=== PATIENT | male | born 1960 | race Caucasian/White ===

== ENCOUNTER 2021-01-12 15:53 | Emergency (ER) | payer SELFPAY ==
[2021-01-12 17:05] LABS: BASOPHIL 0.4 % (0-2); EOSINOPHIL 0.3 % (0-5); HCT 48.3 % (42.0-52.0); HGB 16.7 g/dl (13.2-18.0); MCH 34.4 pg (25.0-31.0); MCHC 34.6 g/dL (32.0-36.0); MCV 99.6 fL (78.0-100.0); MPV 9.7 fL (6.0-9.5); NEUTROPHIL 80.9 % (41-80); NRBC 0; PLT 418 K/uL (150-400); RBC 4.85 M/uL (4.70-6.00); RDW 13.6 % (11.5-14.0); WBC 13.8 K/uL (4.0-10.5)
[2021-01-12 17:25] LABS: ALBUMIN 3.5 g/dL (3.4-5.0); BILIRUBIN - TOTAL 0.7 mg/dL (0.2-1.0); BUN/CREAT RATIO (CALC) 14.7 RATIO; CREATININE 1.02 mg/dL (0.67-1.17); GLOBULIN (CALCULATION) 4.4 g/dL; TOTAL PROTEIN 7.9 g/dL (6.4-8.2)
[2021-01-12 17:33] LABS: PRO-BNP 508 pg/mL (<125)
[2021-01-12 18:10] LABS: LACTIC ACID 2.8 mmol/L (0.4-1.9)
[2021-01-12] MEDS ORDERED: PREDNISONE 20MG20 MG PO (20:14)
[2021-01-12] MEDS ORDERED: VENTOLIN HFA IN18 GM INH (20:14)
[2021-01-12] MEDS ORDERED: CEFDINIR300 MG PO (20:37)
== END 2021-01-12 21:15 | disposition home or self-care (01) ==
LOC: FER 15:53
PROVIDERS: Emergency Medicine
DX: J44.9 Chronic obstructive pulmonary disease, unspecified (principal); J98.01 Acute bronchospasm; Z87.891 Personal history of nicotine dependence
CPT/HCPCS: 36415; 71045; 71275; 80053; 83605; 83880; 84484; 85025; 85379; 87040; 93005; 94640; 94664; J0696; J2930; Q9967